=== PATIENT | female | born 1990 | race Two or more races ===

== ENCOUNTER 2018-11-14 18:53 | Emergency (ER) | payer BC, OTHER ==
[2018-11-14 19:28] VITALS: BP 109/68
--- NOTE | 2018-11-14 19:33 | UC ---
HPI BURN - HPI Summary HPI Summary: Pt presents for evalution of steam burn from autoclave machine on right wrist - occured Thjeffrey Pt was at work, wearing a lab coat - cooled repeated with water. Pt had small blister that opened. mild discomfort - has taken motrin/apap - none today reports little pain, concern for infection Tdap > 10 years not meds reviewed - History of Current Complaint Chief Complaint: UCBurn Stated Complaint: WORK INJURY- RT WRIST BURN Time Seen by Provider: 11/14/18 19:28 Hx Obtained From: Patient Hx Last Menstrual Period: 11/01/18 Occurred: Days Ago Pain Intensity: 0 - Allergy/Home Medications Allergies/Adverse Reactions: Allergies Allergy/AdvReac Type Severity Reaction Status Date / Time No Known Allergies Allergy Verified 11/14/18 19:28 Home Medications: Home Medications NK [No Home Medications Reported] 11/14/18 [History Confirmed 11/14/18] PMH/Surg Hx/FS Hx/Imm Hx Previously Healthy: Yes - Surgical History Surgical History: Yes Surgery Procedure, Year, and Place: left knee 2018 - Family History Known Family History: Positive: Non-Contributory - Social History Occupation: Employed Full-time Lives: With Family Alcohol Use: None Substance Use Type: None Smoking Status (MU): Never Smoked Tobacco - Immunization History Most Recent Tetanus Shot: unknown Review of Systems All Other Systems Reviewed And Are Negative: Yes Constitutional: Positive: Negative Skin: Positive: Other - burn right wrist Physical Exam - Summary Physical Exam Summary: Vital Signs Reviewed: Yes A+Ox3, no distress Eyes: Conjunctiva Clear ENT: Hearing grossly normal neck: supple Respiratory: Positive: No respiratory distress, No accessory muscle use Cardiovascular: skin color reflect adequate perfusion Musculoskeletal Exam: DYE x 4 without difficulty full AROM wrist, elbow Neurological: Positive: Alert, ambulatory without difficulty Psychological: Positive: Normal Response To Family Skin: Positive: Right forearm volar aspect pt with 4x2cm rectangular injury c.w report of burn. Pt with 2 section of blister. othewise flat 1st degree Triage Information Reviewed: Yes Vital Signs: Initial Vital Signs Temp 98.9 F 11/14/18 19:21 Pulse 77 11/14/18 19:21 Resp 12 11/14/18 19:21 BP 109/68 11/14/18 19:21 Pulse Ox 100 11/14/18 19:21 Burn Calculation - Toast Formula for Fluid Resuscitation Weight: 73.936 kg 24 -Hour Fluid Replacement: 0.0 Course/Dx Burn - Course Course Of Treatment: Pt with 1 and 2 degree burn to right wrist from steam last Thur at work [place] covered with silvadene cream and non stick banage tdap update no concern for infection at this appt - no fever, red streaking, coloc chamorro/apap f/u with Dr. Osuna pt comfortable and in agreement with plan wound not circumferential Pt is RHD - Diagnoses Provider Diagnosis: Burn (any degree) involving less than 10% of body surface Discharge - Sign-Out/Discharge Documenting (check all that apply): Patient Departure All imaging exams completed and their final reports reviewed: No Studies - Discharge Plan Condition: Stable Disposition: HOME Patient Education Materials: Diphtheria/Acellular Pertussis/Tetanus Booster Vaccine (By injection), Second Degree Burn (ED) Referrals: Jean Osuna MD [Medical Doctor] - No Primary Care Phys,NOPCP [Primary Care Provider] - Additional Instructions: - Cover wound with thick layer of silvadene ointment 2 times a day - cover with non stick wound and bandage - Okay to alteranate ibuprofen (Advil, Motrin) and tylenol every 3hours as needed for pain - you were given a tetanus vaccine today - you should expect discomfort in your arm - this is normal - Monitor your wound for signs of infection - reddness, red streaking, drainage , increased pain, odor, or any other concerns - Contact Dr. Osuna- the occupational medicine doctor tomorrow to schedule a follow-up appointment this week - Billing Disposition and Condition Condition: STABLE Disposition: Home
[2018-11-14] MEDS ORDERED: Silver Sulfadiazine 1%* 20 GM TOPICAL ONE (19:58)
[2018-11-14] MEDS ORDERED: Tetan/Diph/Pertus SYR(Tdap)* 0.5 ML SYR(BOOSTRIX) use SYR IM ONE (19:59)
== END 2018-11-14 20:20 | disposition home or self-care (01) ==
LOC: UCEAST 18:53
DX: T23.271A Burn of second degree of right wrist, initial encounter (principal); T31.0 Burns involving less than 10% of body surface; X13.1XXA Other contact with steam and other hot vapors, initial encounter; Y93.89 Activity, other specified; Y92.9 Unspecified place or not applicable; Y99.0 Civilian activity done for income or pay
CPT/HCPCS: 16020; 90471; 90715; 99212; A9270-GY; G0463

== ENCOUNTER 2020-04-08 01:18 | Inpatient (IN) ==
[2020-04-08] MEDS ORDERED: Penicillin G Potassium IV 5,000,000 UNITS in NS 0.9% 100 ml BAG 100 ML IVPB ONE (02:15)
[2020-04-08] MEDS ORDERED: Lactated Ringers 1000 ml BAG 1,000 ML IV ONE ×2 (02:15→04:06)
[2020-04-08 03:02] LABS: ABS Lymphocytes 1.8 10^3/ul (1.0-4.8); ABS Monocytes 0.5 10^3/ul (0-0.8); ABS Neutrophils 5.3 10^3/ul (1.5-7.7); Eosinophil % 0.3 %; Hematocrit 35 % (35-47); Hemoglobin 11.7 g/dL (12.0-16.0); Lymphocyte % 23.7 %; Mean Corpuscular HGB Conc 34 g/dL (31-36); Mean Corpuscular Hemoglobin 29 pg (27-31); Mean Corpuscular Volume 86 fL (80-97); Mean Platelet Volume 8.4 fL (7.4-10.4); Nucleated Red Blood Cells % 0.1; Platelet Count 105 10^3/uL (150-450); Red Blood Count 4.06 10^6 /uL (3.70-4.87); Red Cell Distribution Width 15 % (10-15); White Blood Count 7.6 10^3/uL (3.5-10.8)
[2020-04-08 03:18] LABS: Urine Benzodiazepine Screen None Detected (None Detect); Urine Cannabinoids Screen None Detected (None Detect); Urine Opiates Screen None Detected (None Detect)
[2020-04-08] MEDS ORDERED: OBEPIDURAL 250 ML EPIDURAL ONE (03:21)
[2020-04-08] MEDS ORDERED: Oxytocin in LR 20 UNITS/1,000 ML BAG IVPB ONE (04:04)
[2020-04-08] MEDS ORDERED: Sodium Citrate/Citric Acid LIQ 15 ML UDC PO PRN (04:06)
[2020-04-08] MEDS ORDERED: Phenylephrine 40 mcg/mL 10mL (400mcg) SYRINGE IV PUSH PRN ×2 (04:06)
[2020-04-08] MEDS ORDERED: Lactated Ringers 1000 ml BAG 500 ML IV PRN ×2 (04:06)
[2020-04-08] MEDS ORDERED: Lactated Ringers 1000 ml BAG 1,000 ML IV SCH ×2 (05:00→06:00)
[2020-04-08] MEDS ORDERED: OBEPIDURAL 250 ML EPIDURAL SCH (05:00)
[2020-04-08] MEDS ORDERED: Dibucaine 1% OINT 28.35 GM TUBE PR PRN (05:09)
[2020-04-08] MEDS ORDERED: Witch Hazel PAD JAR TOPICAL PRN (05:09)
[2020-04-08] MEDS ORDERED: Methylergonovine 0.2 mg AMPULE 1 ml AMP IM ONE (05:09)
[2020-04-08] MEDS ORDERED: Oxytocin in LR 20 UNITS/1,000 ML BAG IVPB SCH (06:00)
[2020-04-08] MEDS ORDERED: Penicillin G Potassium IV 3,000,000 UNITS in NS 0.9% 100 ml BAG 100 ML IVPB SCH (06:45)
[2020-04-08] MEDS ORDERED: Ammonia Inhalant 1 EA AMP ONE (07:43)
[2020-04-08] MEDS ORDERED: Lidocaine 1% VIAL 10 MG/ML VIAL ONE (18:54)
[2020-04-09 07:40] LABS: ABS Lymphocytes 1.4 10^3/ul (1.0-4.8); ABS Monocytes 0.6 10^3/ul (0-0.8); ABS Neutrophils 7.4 10^3/ul (1.5-7.7); Eosinophil % 0.4 %; Hematocrit 27 % (35-47); Lymphocyte % 14.7 %; Mean Corpuscular HGB Conc 33 g/dL (31-36); Mean Corpuscular Hemoglobin 29 pg (27-31); Mean Corpuscular Volume 86 fL (80-97); Platelet Count 97 10^3/uL (150-450); Red Blood Count 3.18 10^6 /uL (3.70-4.87); Red Cell Distribution Width 15 % (10-15); White Blood Count 9.4 10^3/uL (3.5-10.8)
[2020-04-10 08:17] VITALS: BP 114/61
== END 2020-04-10 11:30 | disposition home or self-care (01) | DRG 560 ==
LOC: MCHOBOUT 01:18 → MCHOB 02:38
PROVIDERS: ADMIT Midwife; ATTEND Midwife